=== PATIENT | male | born 1985 | race Caucasian/White ===

== ENCOUNTER 2018-07-21 19:35 | Emergency (ER) | payer SELFPAY ==
[~2018-07-21] VITALS: Ht 182.9 cm; Wt 89.4 kg
[2018-07-21 19:54] VITALS: BP 133/60; PULSE 86; RESP 18; Ht 182.9 cm; Wt 89.4 kg
== END 2018-07-21 23:59 | disposition left against medical advice (07) ==
LOC: E/R 19:35
DX: Z53.21 Procedure and treatment not carried out due to patient leaving prior to being seen by health care provider (principal)
CPT/HCPCS: 93005